=== PATIENT | female | born 1995 | race Caucasian/White ===

== ENCOUNTER 2018-01-14 08:37 | Emergency (ER) | payer OTHER, SELFPAY ==
[2018-01-14 09:35] VITALS: BP 110/66; PULSE 73; RESP 18; TEMP 36.9; O2SAT 100; BMI 21.1
--- NOTE | 2018-01-14 10:01 | DI.US.S_ITS ---
PROCEDURE: US PELVIC COMPLETE INDICATIONS: pelvic pain, hx IUD TECHNIQUE: Real-time scanning was performed of the pelvic organs, with image documentation. Additional endovaginal scanning was necessary due to incomplete visualization of the adnexal and endometrial structures by transabdominal scanning. COMPARISON: None. FINDINGS: Transabdominal scanning: Limited scanning through the kidneys shows no hydronephrosis. No pathologic free abdominal or pelvic fluid. Endovaginal scanning: Uterus: Uterus is normal in size at 7.0 x 3.3 x 5.5 cm. The endometrium measures 2.5 mm in combined thickness. Intrauterine device is noted in its normal central location. No endometrial mass or fluid is seen. Ovaries: Right ovary measures 5.2 x 4.8 x 4.1 cm in size. Left ovary measures 3.2 x 1.8 x 2.2 cm in size. 3 x 4 x 3.4 cm complex cyst versus hemorrhagic cyst is noted in right ovary. No internal vascularity seen. There is approximately 16 cc of fluid with low level echo seen within posterior cul-de-sac, which may represent blood. IMPRESSION: 1. IUD is in its normal central endometrial location. No endometrial mass or fluid. 2. 3 x 4 x 3.4 cm complex cyst versus hemorrhagic cyst noted in right ovary with moderate amount of complex appearing fluid within posterior cul-de-sac which could represent blood within posterior cul-de-sac. No solid-appearing ovarian lesion. No evidence of ovarian torsion. Dictated by: Stanislav Koch M.D. on 01/14/2018 at 10:44 Approved by: Stanislav Koch M.D. on 01/14/2018 at 10:52
[2018-01-14 10:38] LABS: RBC Urine None Seen (0-5/HPF); WBC Urine 1-5/HPF (0-5/HPF)
[2018-01-14 10:39] LABS: Bacteria Urine Moderate (10-30); Culture Indicated Urine Cult Not Indicated; Squamous Epithelial Cell Urine 0-1 /HPF
[2018-01-14 10:41] VITALS: BP 112/66; PULSE 64; RESP 18; O2SAT 100
--- NOTE | 2018-01-14 10:45 | ED_ITS ---
HPI - Female Genitourinary General Chief complaint: Urogenital-Female Stated complaint: PELVIC PAIN Time Seen by Provider: 01/14/18 08:42 Source: patient Mode of arrival: ambulatory Limitations: no limitations History of Present Illness HPI Narrative: Patient presents to the emergency department for evaluation pelvic pain which started this morning. She states it became intense after intercourse and tends to be worse while standing and improves mansoor. She denies urinary complaints such as dysuria, frequency or urgency. She denies vaginal bleeding or discharge. She has an IUD in place since July and has had no menses since. She denies any history of gynecologic diagnoses Complaint: pelvic pain Onset (ago): hour(s) Location: suprapubic Quality: Aching, Burning and Cramping Duration: constant Relieving factors: other (Laying down) Exacerbating factors: movement Patient : No Associated symptoms: denies other symptoms Related Data Home Medications Medication Instructions Recorded Confirmed levonorgestrel 20 mcg/24 hr (5 INTRAUTERINE each 10/13/17 10/13/17 years) intrauterine device spironolactone 01/14/18 Allergies Allergy/AdvReac Type Severity Reaction Status Date / Time No Known Allergies Allergy Uncoded 09/09/17 12:51 Review of Systems Review of Systems All systems reviewed & are unremarkable except as noted in HPI and below Constitutional Denies chills, Denies fever(s), Denies lethargy and Denies weakness Eyes Denies change in vision, Denies eye discharge, Denies irritation and Denies loss of vision ENT Ears, Nose, Mouth, and Throat: Denies change in voice, Denies neck pain and Denies sore throat Cardiovascular Denies chest pain, Denies irregular heart rhythm, Denies lightheadedness, Denies palpitations, Denies dyspnea, Denies dyspnea on exertion and Denies orthopnea Respiratory Denies cough, Denies dyspnea, Denies dyspnea on exertion and Denies wheezing Gastrointestinal Gastrointestinal: Denies abdominal pain, Denies change in bowel habits, Denies diarrhea, Denies nausea and Denies vomiting Genitourinary Reports system reviewed and no additional complaints, except as docu, Reports as per HPI, Denies hematuria, Denies flank pain, Denies urinary incontinence and Denies urinary urgency Musculoskeletal Denies neck pain Integumentary/Breasts Denies pruritus, Denies erythema, Denies rash and Denies wounds Neurologic Denies confusion, Denies loss of vision and Denies weakness Psychiatric Denies anxiety, Denies confusion, Denies depression, Denies homicidal ideation and Denies suicidal ideation Endocrine Denies palpitations Hematologic/Lymphatic Denies easy bruising Allergic/Immunologic Denies wheezing [facility] Social History Smoking Status: Never smoker Exam Narrative Exam Narrative: GEN: AOx3 and in mild distress EYES: Pupils are equal, round, and reactive to light and accommodation. Extraoccular muscles are intact bilaterally. There is no subconjunctival hemorrhage or exudate. CHEST: Lungs are clear to auscultation bilaterally and free of wheezes, rales, or rhonchi. Heart rate is regular rhythm, there are no murmurs, clicks, rubs, or gallops. There is no chest wall tenderness. ABD: Abdomen is soft and mildly tender in the suprapubic region. There is no guarding or rebound. Bowel sounds are normal in all 4 quadrants. There is no mass or organomegaly. EXT: Full painless ROM of all extremities with no loss of sensation or strength. SKIN: Warm, pink, and dry. No erythema or rash Initial Vital Signs Initial Vital Signs: Vital Signs Temperature 98.4 F 01/14/18 09:35 Pulse Rate 73 01/14/18 09:35 Respiratory Rate 18 01/14/18 09:35 Blood Pressure 110/66 01/14/18 09:35 Pulse Oximetry 100 01/14/18 09:35 Course Orders Ordered: ED Orders 01/14/18 10:18 Urine Microscopic Stat Vital Signs - 8 hr 01/14/18 09:35 01/14/18 10:41 Temperature 98.4 F Pulse Rate 73 64 Respiratory Rate 18 18 Blood Pressure 110/66 112/66 Pulse Oximetry 100 100 MDM - Female Genitourinary Lab Data Lab Results 01/14/18 Range/Units 10:18 Urine RBC None seen (0-5/HPF) Urine WBC 1-5/hpf (0-5/HPF) Ur Squamous Epith Cells 0-1 /hpf Urine Bacteria Moderate (10-30) H (None) Ur Culture Indicated? Cult not indicated Micro UA Comment Not Reportable Discharge Plan Departure Patient Disposition: Home Clinical Impression: Ovarian cyst Discharge Date/Time: 01/14/18 10:42 Interventions: ED Discharge Assessment Last Done: 01/14/18 10:41 Instructions: DI for Ovarian Cyst Activity Restrictions/Additional Instructions: *You have been diagnosed with [ right-sided ovarian cyst ] *What to do: *Take medications as directed: Trent *Follow up with Dr. Warner, call for an appointment. Let them know you were seen in the Emergency Department and that we ask that you be seen in follow up *Return to ER if you should have any new, worsening or concerning symptoms Prescriptions: No Action levonorgestrel [Mirena] 20 mcg/24 hr (5 years) intrauterine device Intrauterine RF: 0 spironolactone 25 mg tablet RF: 0 Referrals: Breana Warner MD [Physician] -
== END 2018-01-14 10:42 | disposition home or self-care (01) ==
PROVIDERS: Emergency Provider Emergency Medicine
DX: N83.201 Unspecified ovarian cyst, right side (principal)
CPT/HCPCS: 76856; 81003; 81015; 81025; 99282; 99284

== ENCOUNTER → 2018-12-16 12:00 | Outpatient (CLI) | payer OTHER, SELFPAY | PROVIDERS: Visit Provider Physician Assistant | DX: J02.9 Acute pharyngitis, unspecified (principal) | CPT/HCPCS: 87070 ==

== ENCOUNTER → 2019-03-10 18:45 | Outpatient (CLI) | payer OTHER, SELFPAY | DX: Z23 Encounter for immunization (principal) | CPT/HCPCS: 90471; 90686 ==

== ENCOUNTER → 2019-05-11 13:14 | Outpatient (CLI) | payer OTHER, SELFPAY ==
[2019-05-11 14:50] LABS: Cancer Antigen 125 < 6 U/mL (0-35)
== END ==
PROVIDERS: Visit Provider Obstetrics & Gynecology
DX: R14.0 Abdominal distension (gaseous) (principal)
CPT/HCPCS: 36415; 86304